=== PATIENT | male | born 1990 | race Caucasian/White ===

== ENCOUNTER 2018-07-09 22:33 | Emergency (ER) | payer OTHER ==
[~2018-07-09] VITALS: Ht 193 cm; Wt 98.9 kg
[2018-07-09] MEDS ORDERED: ADDERALL 30 MG30 MG PO (22:42)
[2018-07-09] MEDS ORDERED: KEFLEX500 M1 PO (22:49)
[2018-07-09 23:21] VITALS: BP 117/76
== END 2018-07-09 23:22 | disposition home or self-care (01) ==
LOC: M.ERS 22:33
DX: S61.012A Laceration without foreign body of left thumb without damage to nail, initial encounter (principal); W26.0XXA Contact with knife, initial encounter; Y93.89 Activity, other specified; Y92.89 Other specified places as the place of occurrence of the external cause; Y99.8 Other external cause status

== ENCOUNTER 2019-05-13 18:52 | Emergency (ER) | payer OTHER ==
[~2019-05-13] VITALS: Ht 193 cm; Wt 107.6 kg
[~2019-05-13 18:52] MED LIST: ADDERALL 30 MG30 MG PO; KEFLEX500 M1 PO
[2019-05-13 19:03] VITALS: BP 147/84
== END 2019-05-13 19:30 | disposition home or self-care (01) ==
LOC: M.ERS 18:52
DX: S06.0X0A Concussion without loss of consciousness, initial encounter (principal); V49.59XA Passenger injured in collision with other motor vehicles in traffic accident, initial encounter; Y93.89 Activity, other specified; Y92.89 Other specified places as the place of occurrence of the external cause; Y99.8 Other external cause status